=== PATIENT | male | born 1990 | race Caucasian/White ===

== ENCOUNTER 2016-10-28 22:07 | Emergency (ER) | payer SELFPAY ==
[2016-10-28] MEDS ORDERED: HYDROCODONE/ACETAMINOPHEN 5-325 MG TABLET PO ONE (22:30)
[2016-10-28] MEDS ORDERED: HYDROCODONE/ACETAMINOPHEN 5-325 MG 6 TAB/DSPK PO PRN (22:30)
[2016-10-28] MEDS ORDERED: PENICILLIN V POTASSIUM 500 MG TABLET PO ONE (22:30)
--- NOTE | 2016-10-28 22:32 | ER Document Report ---
HPI - HPI Patient complains to provider of: Dental pain Pain Level: 4 Context: Patient is a 26-year-old male who comes emergency department for chief complaint of dental pain, this has worsened over the past several days, patient has known fillings that came out, pain is both upper and lower. He has a dental appointment 2 weeks from now reportedly. He denies sore throat, neck pain, fever , headache. He denies any daily medications. - DERM Skin Color: Normal Past Medical History - General Information source: Patient - Social History Smoking Status: Current Every Day Smoker Frequency of alcohol use: Occasional Lives with: Spouse/Significant other Family History: Reviewed & Not Pertinent Patient has suicidal ideation: No Patient has homicidal ideation: No - Medical History Medical History: Negative Renal/ Medical History: Denies: Hx Peritoneal Dialysis Surgical Hx: Negative - Immunizations Hx Diphtheria, Pertussis, Tetanus Vaccination: Yes Vertical Provider Document - CONSTITUTIONAL General Appearance: WD/WN, No Apparent Distress - INFECTION CONTROL TRAVEL OUTSIDE OF THE [place] IN LAST 30 DAYS: No - HEENT HEENT: Atraumatic, Normocephalic Mouth Diagram: 1 - Dental fracture 2 - Caries, mild tenderness of the gumline - NECK Neck: Normal Inspection - RESPIRATORY Respiratory: Breath Sounds Normal, No Respiratory Distress O2 Sat by Pulse Oximetry: 100 - CARDIOVASCULAR Cardiovascular: Regular Rate, Regular Rhythm Course - Re-evaluation Re-evalutation: Dental fracture and caries with no evidence of abscess, no soft tissue swelling or lymphadenopathy. Patient has dentist follow-up. Starting on antibiotics, gave a to go pack of [place], discussed return precautions. Patient states understanding and agreement. - Vital Signs Vital signs: Temp Pulse Resp BP Pulse Ox 98.6 F 82 18 160/91 H 100 10/28/16 22:10 10/28/16 22:10 10/28/16 22:10 10/28/16 22:10 10/28/16 22:10 Discharge - Discharge Clinical Impression: Pain, dental Condition: Stable Disposition: HOME, SELF-CARE Additional Instructions: Take the antibiotic to completion. Take ibuprofen for pain during the day, take the given pain medication if needed (especially to sleep). Follow up with the Dentist as planned. Return to the ED for any concerning or worsening symptoms (i.e. swelling of the face or jaw). Prescriptions: Penicillin V Potassium [Penicillin Vk 500 mg Tablet] 500 mg PO BID #20 tablet Forms: Elevated Blood Pressure
[2016-10-28 23:37] VITALS: BP 142/66
== END 2016-10-28 22:49 | disposition home or self-care (01) ==
LOC: ER 22:07
DX: K08.9 Disorder of teeth and supporting structures, unspecified (principal); F17.200 Nicotine dependence, unspecified, uncomplicated
CPT/HCPCS: 99282

== ENCOUNTER 2016-11-12 11:14 | Emergency (ER) | payer SELFPAY ==
[2016-11-12 11:21] VITALS: BP 129/85
[2016-11-12] MEDS ORDERED: CLINDAMYCIN HCL 150 MG CAPSULE PO ONE (11:33)
--- NOTE | 2016-11-12 11:35 | ER Document Report ---
HPI - HPI Patient complains to provider of: dental pain Onset: Other - 2 wks Onset/Duration: Persistent Quality of pain: Sharp Pain Level: 5 Context: Patient complains of dental pain for the past 2 weeks. Patient was here 2 weeks ago and given a prescription for penicillin. Patient states that when he went to follow-up with a dentist they told him that his insurance had and that if he had any continued problems he should return to the emergency department. Patient complains of continued pain. Patient without any fever or facial swelling. Associated Symptoms: Other - dental pain. denies: Fever Exacerbated by: Denies Relieved by: Denies Similar symptoms previously: Yes Recently seen / treated by doctor: Yes - ROS ROS below otherwise negative: Yes Systems Reviewed and Negative: Yes All other systems reviewed and negative - CONSTITUTIONAL Constitutional: DENIES: Fever, Chills - EENT EENT: DENIES: Ear Pain Notes: dental pain - GASTROINTESTINAL Gastrointestinal: DENIES: Patient vomiting - MUSCULOSKELETAL Musculoskeletal: DENIES: Neck Pain - DERM Skin Color: Normal Skin Problems: None Past Medical History - General Information source: Patient - Social History Smoking Status: Current Every Day Smoker Frequency of alcohol use: Occasional Drug Abuse: None Occupation: none Family History: Reviewed & Not Pertinent - Medical History Medical History: Negative Renal/ Medical History: Denies: Hx Peritoneal Dialysis Surgical Hx: Negative - Immunizations Hx Diphtheria, Pertussis, Tetanus Vaccination: Yes Vertical Provider Document - CONSTITUTIONAL Agree With Documented VS: Yes Exam Limitations: No Limitations General Appearance: WD/WN, No Apparent Distress - INFECTION CONTROL TRAVEL OUTSIDE OF THE [place] IN LAST 30 DAYS: No - HEENT HEENT: Atraumatic, Normocephalic. negative: Pharyngeal Exudate, Pharyngeal Tenderness, Pharyngeal Erythema, Tympanic Membrane Red Mouth Diagram: 1 - dental decay, tenderness 2 - dental decay, tenderness Notes: no trismus, no sublingual or submental swelling, no potential airway compromise. - NECK Neck: Normal Inspection, Supple. negative: Lymphadenopathy-Left, Lymphadenopathy-Right - RESPIRATORY Respiratory: Breath Sounds Normal, No Respiratory Distress O2 Sat by Pulse Oximetry: 98 - CARDIOVASCULAR Cardiovascular: Regular Rate, Regular Rhythm - NEURO Level of Consciousness: Awake, Alert, Appropriate Motor/Sensory: No Motor Deficit - DERM Integumentary: Warm, Dry, No Rash Course - Vital Signs Vital signs: Temp Pulse Resp BP Pulse Ox 98.1 F 104 H 16 129/85 H 98 11/12/16 11:20 11/12/16 11:20 11/12/16 11:20 11/12/16 11:20 11/12/16 11:20 Discharge - Discharge Clinical Impression: Toothache Condition: Stable Disposition: HOME, SELF-CARE Instructions: Clindamycin ([facility]), Toothache ([facility]), Dentist Additional Instructions: Return immediately for any new or worsening symptoms Followup with your dental care provider, call tomorrow to make a followup appointment Prescriptions: Clindamycin HCl [Cleocin 300 mg Capsule] 300 mg PO TID #21 capsule Naproxen [Naprosyn 250 Nmg Tablet] 1 tab PO BID #14 tablet Referrals: [facility] [Provider Group] - Follow up as needed
== END 2016-11-12 11:48 | disposition home or self-care (01) ==
LOC: ER 11:14
DX: K08.89 Other specified disorders of teeth and supporting structures (principal); F17.200 Nicotine dependence, unspecified, uncomplicated
CPT/HCPCS: 99282